=== PATIENT | female | born 1995 | race Asian ===

== ENCOUNTER 2020-06-14 08:00 | Outpatient (CLI) | payer BC ==
[2020-06-15 12:25] LABS: HEPATITIS C ANTIBODY NON-REACTIVE (NON-REACTIVE)
[2020-06-15 12:51] LABS: HIV AG/AB 4TH GEN NON-REACTIVE (NON-REACTIVE)
== END 2020-06-14 23:59 | disposition home or self-care (01) ==
LOC: LAB.N 08:00
PROVIDERS: ATTEND Physician Assistant Medical
DX: A56.19 Other chlamydial genitourinary infection (principal)
CPT/HCPCS: 36415; 81599; 86592; 86803; 87389

== ENCOUNTER 2021-02-13 14:10 | Outpatient (CLI) | payer BC ==
[2021-02-13 22:45] LABS: BACTERIAL VAGINOSIS DNA POSITIVE (NEGATIVE); CANDIDA GLABRATA DNA NEGATIVE (NEGATIVE); CANDIDA GROUP DNA NEGATIVE (NEGATIVE); CANDIDA KRUSEI DNA NEGATIVE (NEGATIVE); TRICHOMONAS VAGINALIS DNA NEGATIVE (NEGATIVE)
[2021-02-13 23:28] LABS: CHLAMYDIA TRACHOMATIS DNA NEGATIVE (NEGATIVE); NEISSERIA GONORRHOEAE DNA NEGATIVE (NEGATIVE); TRICHOMONAS VAGINALIS DNA NEGATIVE (NEGATIVE)
[2021-02-14 12:48] LABS: HEPATITIS C ANTIBODY NON-REACTIVE (NON-REACTIVE)
[2021-02-14 14:46] LABS: HIV AG/AB 4TH GEN NON-REACTIVE (NON-REACTIVE)
[2021-02-15 14:01] LABS: HSV 2 IGG TYPE SPECIFIC AB <0.90 index
== END 2021-02-13 23:59 | disposition home or self-care (01) ==
LOC: LAB.N 14:10
PROVIDERS: ATTEND Nurse Practitioner
DX: Z11.3 Encounter for screening for infections with a predominantly sexual mode of transmission (principal)
CPT/HCPCS: 36415; 81599; 86592; 86695; 86696; 86803; 87389; 87491; 87591; 87661; 87801

== ENCOUNTER 2022-09-06 19:51 | Emergency (ER) | payer MEDICAID, OTHER ==
[2022-09-06 20:03] VITALS: BP 122/80
[2022-09-06] MEDS ORDERED: DORZOLAMIDE/TIMOLOL OPHTH DROPS RIGHTEYE STA (20:24)
[2022-09-06] MEDS ORDERED: acetaZOLAMIDE 250 MG TABLET PO STA ×2 (20:24→20:30)
[2022-09-06] MEDS ORDERED: BRIMONIDINE 0.1% OPHTH DROPS 5 ML RIGHTEYE STA (20:26)
[2022-09-06] MEDS ORDERED: PILOCARPINE 1% OPHTH DROPS RIGHTEYE STA (20:31)
--- OUTSIDE RECORDS SUMMARY | 2022-09-06 20:36 | EXTERNAL MEDICAL SUMMARY RPT | Continuity of Care Document ---
:1995 Author Organization [facility] Address [address] [place] [address] Phone Care Team Providers Name Role Phone Unavailable Unavailable Unavailable Jovanna Colvin, Octavio Unavailable Unavailable Sultana Colvin, Mo Unavailable Unavailable Allergies No information. Encounters No information. Functional Status No information. Immunizations No information. Medications date description facility 2022-08-29 00:00 cyclobenzaprine All 2022-08-29 00:00 cyclobenzaprine All 2022-08-29 00:00 cyclobenzaprine All 2022-08-29 00:00 cyclobenzaprine All 2022-08-29 00:00 KETOROLAC TROMETHAMINE All 2022-08-20 00:00 methocarbamol All 2022-08-20 00:00 methocarbamol All Problems date description facility 2022-08-20 00:00 Low back strain All 2022-08-20 00:00 Low back strain All 2022-08-20 00:00 Lumbar sprain All 2022-08-20 00:00 Lumbar sprain All 2022-08-20 00:00 Strain of muscle, fascia and tendon of lower back, All initial encounter 2022-08-20 00:00 Strain of muscle, fascia and tendon of lower back, All initial encounter 2022-08-29 00:00 Low back strain All 2022-08-29 00:00 Lumbar sprain All 2022-08-29 00:00 Strain of muscle, fascia and tendon of lower back, All subsequent encounter Procedures date description facility 2022-08-20 00:00 Visit Code Hold All 2022-08-20 00:00 Visit Code Hold All 2022-08-29 00:00 Visit Code Hold All 2022-08-29 00:00 IM or SQ Injection All 2022-08-29 00:00 Ketorolac Tromethamine 30 mg/ml Soln A ll Results/Labs No information. Social History date description facility 2022-08-20 00:00 Unknown if ever smoked All 2022-08-21 00:00 Unknown if ever smoked All 2022-09-01 00:00 Unknown if ever smoked All Vital Signs date measurement value units 2022-08-20 00:00 BMI 26.10 kg/m2 2022-08-20 00:00 BP_diastolic 78 mmHg 2022-08-20 00:00 BP_systolic 117 mmHg 2022-08-20 00:00 heart_rate 89 /min 2022-08-20 00:00 height_metric 157.48 cm 2022-08-20 00:00 height_standard 62 in 2022-08-20 00:00 respiration_rate 20 /min 2022-08-20 00:00 temperature_metric 36.94 C 2022-08-20 00:00 temperature_standard 98.5 F 2022-08-20 00:00 weight_metric 64.5 kg 2022-08-20 00:00 weight_standard 142.2 lb 2022-08-29 00:00 BMI 26.51 kg/m2 2022-08-29 00:00 BP_diastolic 82 mmHg 2022-08-29 00:00 BP_systolic 115 mmHg 2022-08-29 00:00 heart_rate 117 /min 2022-08-29 00:00 height_metric 157.48 cm 2022-08-29 00:00 height_standard 62 in 2022-08-29 00:00 respiration_rate 18 /min 2022-08-29 00:00 temperature_metric 36.67 C 2022-08-29 00:00 temperature_standard 98 F 2022-08-29 00:00 weight_metric 65.5 kg 2022-08-29 00:00 weight_standard 144.4 lb
[2022-09-06] MEDS ORDERED: BRIMONIDINE 0.15% OPHTH DROPS 5 ML RIGHTEYE STA (20:50)
[2022-09-06] MEDS ORDERED: BRIMONIDINE 0.2% OPHTH DROPS 5 ML RIGHTEYE STA (20:50)
[2022-09-06] MEDS ORDERED: KETOROLAC 30 MG/ML VIAL IM STA (21:38)
--- NOTE | 2022-09-06 22:41 | ED Physician Documentation ---
History of Present Illness - Stated complaint Stated Complaint: N/V/RT EYE PX - Chief complaint Chief Complaint: Abd Pain - History obtained from History obtained from: Patient - Additonal information Additional information: 27yF with pmh glaucoma p/w severe sudden onset R eye pain today with associated daniels, n/v, and clouding of vision. patient previously got care in the [facility] and does not have pcp or retail sales manager here. PD PAST MEDICAL HISTORY - Allergies Allergies/Adverse Reactions: Allergies Allergy/AdvReac Type Severity Reaction Status Date / Time No Known Drug Allergies Allergy Verified 09/06/22 20:00 PD ED PE NORMAL - Vitals Vital signs reviewed: Yes - General General: Alert and oriented X 3, Other (moderate distress) - HEENT HEENT: Atraumatic, Other (R eye with injected conjuntiva, clouded iris, mid dilated sluggishly reactive pupil. L eye ERRL. ) Results - Vitals Vitals: Vital Signs - 24 hr 09/06/22 09/06/22 09/06/22 20:00 20:03 22:26 Temperature 36.5 C 36.5 C Heart Rate 98 98 86 Respiratory 18 18 Rate Blood Pressure 122/80 122/80 O2 Saturation 99 99 Oxygen O2 Source Room air - Labs Labs: Laboratory Tests 09/06/22 21:32 SARS-CoV-2 (PCR) NOT DETECTED PD Medical Decision Making - ED course ED course: 27yF presented with R eye acute angle closure glaucoma. tonometer unable to measure. oral and topical treatment initiated and ophtho contacted. 10:30pm - d/w retail sales manager Dr. Raimundo Macedo who agrees with our management of cosopt topical ophalmic treatmeent 3-5 times 5 minutes apart alongside oral diamox 500mg. He also recommended brimonidine which per staff command and control officer we do not currently have here at [facility]. recommending ophtho to see the patient but /[facility] is not accepting nontransfers except through [facility] at this time. we contacted [facility] and are waiting to hear back. called [facility] and obtained clearance to transfer to [facility] ED with Dr. Macedo accepting. Departure - Departure Disposition: 02 Transfer Acute Care Hosp Clinical Impression: Acute angle-closure glaucoma of right eye Condition: Stable
== END 2022-09-07 00:35 | disposition short-term general hospital (02) ==
LOC: ED 19:51
DX: H40.211 Acute angle-closure glaucoma, right eye (principal); Z20.822 Contact with and (suspected) exposure to COVID-19
CPT/HCPCS: 87635; 96372; 99283; 99284; A9270

== ENCOUNTER 2023-01-05 14:24 | Outpatient (CLI) | payer MEDICAID | END 2023-01-05 14:25 | disposition home or self-care (01) | LOC: MAC.INF 14:24 | PROVIDERS: ATTEND Physician Assistant | DX: R00.2 Palpitations (principal); R07.89 Other chest pain | CPT/HCPCS: 93246 ==

== ENCOUNTER 2023-02-03 10:30 | Outpatient (CLI) | payer MEDICAID | END 2023-02-03 10:31 | disposition home or self-care (01) | LOC: MAC.INF 10:30 | PROVIDERS: ATTEND Physician Assistant | DX: R00.0 Tachycardia, unspecified (principal); I49.3 Ventricular premature depolarization | CPT/HCPCS: 93248 ==

== ENCOUNTER 2023-08-08 15:39 | Outpatient (CLI) | payer MEDICAID ==
[~2023-08-08 15:39] MED LIST: GADOTERATE MEGLUMINE 2.5 MMOL/5 ML VIAL ONE; GADOTERATE MEGLUMINE 5 MMOL/10 ML VIAL ONE
[2023-08-08] MEDS ORDERED: GADOTERATE MEGLUMINE 5 MMOL/10 ML VIAL IVP ONE (16:37)
--- NOTE | 2023-08-10 10:01 | MRI Report ---
PROCEDURE: Brain W/WO INDICATIONS: HEADACHE CONTRAST: CLARISCAN 13.0 ML TECHNIQUE: Noncontrast axial T1 spin echo, axial T2 fast spin echo, sagittal and axial FLAIR, coronal T2 fast sp in echo, axial gradient echo, axial diffusion and ADC through the brain. After the administration of contrast, axial and coronal T1 spin echo with fat saturation through the brain. COMPARISON: None. FINDINGS: Image quality: Extensive dental metal artifact on multiple sequences. Axial T2 and FLAIR images and s agittal FLAIR images are diagnostic. Significant artifact on diffusion-weighted sequence, magnetic swanson sceptibility sequences, and post gadolinium imaging. CSF spaces: Basal cisterns are patent. No extra-axial fluid collections. Ventricles are normal in size and shape. Brain: No midline shift. No intracranial bleeds or masses. No abnormal intracranial enhancement. There is cerebral volume loss for age. There is periventricular white matter chronic small vessel is chemic change. The brainstem appears normal. Diffusion-weighted images demonstrate no acute ischemi c insults. No chronic ischemic insults. Normal intravascular flow voids are present. Skull and face: Calvarial marrow is normal in signal. Orbits appear normal. Sinuses: Sinuses and mastoids appear clear. IMPRESSION: 1. Extensive dental artifact 2. No acute intracranial process noted. Reviewed by: Andrade Desai MD on 08/10/2023 9:59 AM PST Approved by: Andrade Desai MD on 08/10/2023 9:59 AM [facility] Station ID: [id number]
== END 2023-08-08 15:40 | disposition home or self-care (01) ==
LOC: DI 15:39
PROVIDERS: ATTEND Physician Assistant
DX: R51.9 Headache, unspecified (principal); H93.12 Tinnitus, left ear; R42 Dizziness and giddiness
CPT/HCPCS: 70553; A9575